=== PATIENT | male | born 1995 | race Caucasian/White ===

== ENCOUNTER 2019-10-30 13:29 | Emergency (ER) | payer OTHER ==
[~2019-10-30] VITALS: Ht 180.3 cm; Wt 87.5 kg
--- NOTE | 2019-10-30 14:07 | REP ---
Right foot four views : There is no fracture or dislocation. Mineralization and joint spaces are normal. There are no calcifications or foreign bodies. Impression: Negative right foot . Electronically Signed by Db Bustamante MD 10/30/2019 01:59 P
[2019-10-30] MEDS ORDERED: KETOROLAC 60 MG/2 ML VIAL (J1885) IM ONE (14:30)
[2019-10-30] MEDS ORDERED: ACETAMINOPHEN 325 MG TAB PO ONE (14:30)
[2019-10-30 14:46] VITALS: BP 131/71
[2019-10-30] MEDS ORDERED: KETO10TAB PO (14:59)
== END 2019-10-30 15:06 | disposition home or self-care (01) ==
LOC: M ED 13:29
DX: S90.31XA Contusion of right foot, initial encounter (principal); S93.431A Sprain of tibiofibular ligament of right ankle, initial encounter; X58.XXXA Exposure to other specified factors, initial encounter; Y92.89 Other specified places as the place of occurrence of the external cause; Y93.89 Activity, other specified; Y99.1 Military activity
CPT/HCPCS: 73630; 96372; 99284; J1885